=== PATIENT | male | born 1975 | race Caucasian/White ===

== ENCOUNTER → 2017-11-20 11:01 | Outpatient (CLI) | payer BC, SELFPAY | PROVIDERS: Visit Provider Otolaryngology | DX: Z01.818 Encounter for other preprocedural examination (principal); H60.11 Cellulitis of right external ear; L72.0 Epidermal cyst | CPT/HCPCS: 93005 ==

== ENCOUNTER 2020-12-02 12:47 | Emergency (ER) | payer SELFPAY ==
[2020-12-02 12:56] VITALS: BMI 24.4
[2020-12-02 13:00] VITALS: BP 131/87; PULSE 93; RESP 19; TEMP 36.8; O2SAT 100; BMI 31.7
--- NOTE | 2020-12-02 13:27 | HMH.EDUTC ---
[facility] [place] Disposition Clinical Impression: Bee sting reaction Qualifiers: Encounter type: initial encounter Injury intent: undetermined intent Qualified Code(s): T63.444A - Toxic effect of venom of bees, undetermined, initial encounter Disposition: Home, Self-Care Condition on Discharge: Good Instructions: How to Care for an Insect Bite or Sting, Insect Bites and Stings (Alternative Therapy), DI for Insect Bites and Stings Additional Instructions: Continue with over the counter Benadryl for reaction/itching if needed as directed on package Return if needed Over the counter Hydrocortisone cream may help Return if needed Straight to ER if any life threatening symptoms Referrals: Provider,Referral, MD [Primary Care Provider] - As needed Time of Disposition: 14:02 Medical Decision Making - Bruce Inquiry Pt receiving controlled substance: No Bruce was queried for this patient: No Vital Signs: 12/02/20 13:00 12/02/20 13:54 Temperature 98.3 F 98.3 F Temperature Source Oral Pulse Rate 93 H Pulse Rate [Right Brachial] 93 H Respiratory Rate 19 19 Blood Pressure 131/87 Blood Pressure [Right Arm] 131/87 Blood Pressure Mean [Right Arm] 101 Blood Pressure Source [Right Arm] Automatic Cuff Blood Pressure Position [Right Arm] Sitting 02 Sat by Pulse Oximetry 100 Oxygen Delivery Method Room Air Orders (Tests/Meds): ED MEDICATIONS Discontinued Medications Generic Name Dose Route Start Last Admin Trade Name Joseq PRN Reason Stop Dose Admin Diphenhydramine HCl 25 mg 12/02/20 13:31 12/02/20 13:42 Diphenhydramine 25mg Capsule PO 12/02/20 13:32 25 mg ONCE ONE Administration Famotidine 20 mg 12/02/20 13:31 12/02/20 13:42 Famotidine 20mg Tablet PO 12/02/20 13:32 20 mg ONCE ONE Administration Methylprednisolone Sodium Succinate 125 mg 12/02/20 13:31 12/02/20 13:44 Methylprednisolone Sod Succ 125mg Vial IM 12/02/20 13:32 125 mg ONCE ONE Administration [facility] [place] HPI - General Stated complaint: Allergic reaction-bee stings X4 Time Seen by Provider: 12/02/20 13:28 Mode of Arrival: Ambulatory Source of Information: Patient Limitations: No Limitations Description of Symptoms (Recalled from Triage Doc. 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 DENIES ANY THROAT SWELLING AND SOA HEENT Symptoms (Recalled from RN notes): No Resp Symptoms (Recalled from RN notes): No Skin Symptoms (Recalled from RN notes): Yes MS Symptoms (Recalled from RN notes): No Functional Status (Recalled from RN notes): WNL - History of Present Illness Provider Complaint: Patient states that he has reactions to bee stings and he was stung earlier while mowing grass about 4 times so he came on in to get treated before he got too bad State that he is starting to have swelling in his legs where he was stung and under his jaw Denies SOA at this time denies trouble swallowing - Related Data Previous Rx's Medication Instructions Recorded cephALEXin [Keflex 500mg Cap] 500 mg PO QID #28 cap 04/24/19 Allergies Allergy/AdvReac Type Severity Reaction Status Date / Time No Known Allergies Allergy Verified 12/18/17 14:24 - Worker's Comp Is this a Worker's Comp case?: No [facility] History - Hepatitis A Screen Drug use history?: No High risk sexual behaviors?: No History of sexually transmitted infection?: No Currently employed?: No Childcare worker?: No Do you have indoor plumbing?: Yes Do you have electricity?: Yes Attestation statement:: This patient has been screened for Hepatitis A risk factors. I have reviewed the patient's past medical history: Yes Medical History: Denies:: Cancer, Diabetes Mellitus Type 1, Diabetes Mellitus Type 2, Hypertension, MRSA, Seizures Other Medical History: Denies: Blood Transfusion Reaction, Other Laterality Cases: Bilateral: Other Other Surgeries: Yes: Other Amputation: No Fractures: No Comment: nasal bone surgery, righ
[2020-12-02 13:54] VITALS: BP 131/87; PULSE 93; RESP 19; TEMP 36.8; O2SAT 100
== END 2020-12-02 14:10 | disposition home or self-care (01) ==
PROVIDERS: Emergency Provider Nurse Practitioner
DX: T63.444A Toxic effect of venom of bees, undetermined, initial encounter (principal)
CPT/HCPCS: 96372; 99202; G0463

== ENCOUNTER → 2021-05-16 15:16 | Outpatient (CLI) | payer OTHER, SELFPAY | PROVIDERS: Visit Provider Nurse Practitioner | DX: U07.1 COVID-19 (principal) | CPT/HCPCS: C9803; U0003; U0005 ==

== ENCOUNTER 2021-07-25 21:22 | Emergency (ER) | payer OTHER, SELFPAY ==
[2021-07-25 21:22] VITALS: BP 141/86; PULSE 86; RESP 18; TEMP 36.6; O2SAT 97; BMI 24.3
[2021-07-25 21:56] LABS: Coronavirus 19, PCR Not Detected (NotDetected); Influenza A, PCR Not Detected (NotDetected); Influenza B, PCR Not Detected (NotDetected)
[2021-07-25 22:30] VITALS: BP 129/90; PULSE 84; O2SAT 98
[2021-07-25 23:13] LABS: Microscopic, Urine URINE MICROSCOPIC (MICROSCOPIC)
[2021-07-25 23:16] LABS: Appearance,Urine CLEAR (Clear); Bilirubin,Urine Negative (Negative); Blood, Urine Negative (Negative); Color,Urine YELLOW (Yellow); Glucose,Urine (UA) Negative (Negative); Ketones,Urine Negative (Negative); Leukocyte Esterase,Urine Negative (Negative); Nitrate,Urine Negative (Negative); Protein,Urine Negative (Negative); Urobilinogen,Urine 0.2 EU/dl (0.2)
--- NOTE | 2021-07-25 23:32 | HMH.EDURI ---
ED Disposition Clinical Impression: Acute viral syndrome Disposition: Home, Self-Care Condition on Discharge: Good Instructions: DI for Nausea -- Adult Additional Instructions: fluids and see pcp for follow up Referrals: Provider,Referral, MD [Primary Care Provider] - - Critical Care Critical Care Time: No Attestation: On 07/25/21, the high probability of a clinically significant, sudden or life threatening deterioration of the following system(s) required my full and direct attention, intervention and personal management. The time I documented below is in addition to time spent performing reported procedures but includes the following listed in this critical care notation. Medical Decision Making - Medical Records Medical records reviewed: Yes: I reviewed the patient's medical records. - Bruce Inquiry Pt receiving controlled substance: No Vital Signs: 07/25/21 21:22 Temperature 97.8 F Temperature Source Oral Pulse Rate [Left Radial] 86 Respiratory Rate 18 Blood Pressure [Right Arm] 141/86 H Blood Pressure Mean [Right Arm] 104 02 Sat by Pulse Oximetry 97 Oxygen Delivery Method Room Air - Lab Data Lab results reviewed: Yes: I reviewed the patient's lab results. Lab Results 07/25/21 21:48: SARS-CoV-2 (PCR) Not detected, Influenza A Untype (PCR) Not detected, Influenza Type B (PCR) Not detected Orders (Tests/Meds): ORDERS Category Date Time Status UA [Urinalysis and Microscopic] Stat Lab 07/25/21 22:35 Received Medical Decision Narrative: has prob viral illness with stable exam and neg covid /flu URI/Sore Throat HPI - General Chief Complaint: Nausea/Vomiting/Diarrhea Stated Complaint: CHILLS,VOMITING Time Seen by Provider: 07/25/21 23:32 Mode of Arrival: Ambulatory Source of Information: Patient, Medical Record Limitations: No Limitations Description of Symptoms (Recalled from ER Triage Doc. by RN): NAUSEA/VOMITING X 3 EPISODES. PT REPORTS HE HAS BEEN ABLE TO DRINK THIS AFTERNOON WITHOUT DIFFICULTY. PT REQUESTS WORK EXCUSE AFTER TREATED AND DISCHARGE. - History of Present Illness HPI Narrative: pt with nausea and vomiting and chills this am - occ cough - MD Complaint: fever, cough Onset (ago): hour(s) Duration: intermittent Severity: moderate Able to tolerate fluids by mouth: Yes Associated symptoms: myalgias Treatments prior to arrival: none - Related Data Previous Rx's Medication Instructions Recorded cephALEXin [Keflex 500mg Cap] 500 mg PO QID #28 cap 04/24/19 Allergies Allergy/AdvReac Type Severity Reaction Status Date / Time No Known Allergies Allergy Verified 12/18/17 14:24 [facility] History - Hepatitis A Screen Drug use history?: No High risk sexual behaviors?: No History of sexually transmitted infection?: No Currently employed?: No Childcare worker?: No Do you have indoor plumbing?: Yes Do you have electricity?: Yes Attestation statement:: This patient has been screened for Hepatitis A risk factors. I have reviewed the patient's past medical history: Yes Medical History: Denies:: Cancer, Diabetes Mellitus Type 1, Diabetes Mellitus Type 2, Hypertension, MRSA, Seizures Other Medical History: Denies: Blood Transfusion Reaction, Other Laterality Cases: Bilateral: Other Other Surgeries: Yes: Other Amputation: No Fractures: No Comment: nasal bone surgery, right finger, vasectomy, teeth extraction, left elbow - Social History Smoking Status: Current every day smoker Tobacco Type: cigarettes # Packs/Day (cigarettes): 1 Alcohol Intake: never Substance Use Type: denies use Occupational Status: employed Housing: house Household Members: family Family Hx:: Non-contributory ROS Obtained: Yes All systems reviewed & no additional complaints - Constitutional Constitutional: Reports fever(s), Reports malaise - Eyes Eyes: Denies change in vision - ENT Ears, Nose, Mouth, and Throat: Reports as per HPI, Denies sore throat - Card
[2021-07-25 23:45] VITALS: BP 125/78; PULSE 75; RESP 17; TEMP 37; O2SAT 97
[2021-07-26 00:11] LABS: Bacteria,Urine Trace /lpf; WBC,Urine Occasional #/hpf (0-3)
== END 2021-07-25 23:46 | disposition home or self-care (01) ==
PROVIDERS: Emergency Provider Emergency Medicine
DX: B34.9 Viral infection, unspecified (principal); R11.2 Nausea with vomiting, unspecified; R50.9 Fever, unspecified; F17.210 Nicotine dependence, cigarettes, uncomplicated
CPT/HCPCS: 81001; 99212; C9803; G0463; U0003; U0005

== ENCOUNTER → 2022-10-23 07:33 | Outpatient (CLI) | payer BC, SELFPAY ==
--- NOTE | 2022-10-23 07:39 | CA_ITS ---
FINAL REPORT TECHNIQUE: Multiple transverse and longitudinal images were performed of the right femoral-popliteal deep venous system with augmentation and compression maneuvers. CLINICAL HISTORY: .Pain and edema in right mid thigh with raised cord @AOI COMPARISON: none FINDINGS: Right lower extremity duplex ultrasound demonstrates superficial venous thrombus in the mid to distal greater saphenous vein. No evidence of DVT. IMPRESSION: Positive for superficial venous thrombus right lower extremity. Negative for DVT. Reviewed, Interpreted and Dictated by Irvin Tanner III, MD Transcribed by Glenis Saucedo Authenticated and [facility]
== END ==
LOC: RT 07:34
PROVIDERS: Visit Provider Physician Assistant
DX: I80.201 Phlebitis and thrombophlebitis of unspecified deep vessels of right lower extremity (principal)
CPT/HCPCS: 93971

== ENCOUNTER 2024-07-28 12:54 | Outpatient (CLI) | payer BC, SELFPAY ==
--- OUTSIDE RECORDS SUMMARY | 2024-07-28 12:57 | XMS_ITS | Data Portability ---
Author Organization [facility] - [facility]ani [facility], [facility] Address [address] [place] [address] Care Team Providers Care Band Manager Name Role Phone EDGARDO PABON Inspector Glass Or Mirror Assessment Encounter Date Assessment Date Assessment LastModified by Organization Details LastModified Time 07/19/2024 07/19/2024 - 49-year-old male with history of right wrist injury presenting with paresthesia and localized numbness in the upper limb. - Negative x-ray and EMG. Ring and small finger involvement suggest possible ulnar nerve or more proximal. - Recommend strengthening therapy. - Imaging: X-ray of right wrist showed no fractures. scott Not available 07/19/2024 14:28:59 Plan of Treatment Reminders Order Date Submit Date Provider Last Modified By Organization Details Last Modified Time Details Appointments RECHECK 2024 09:30A Faisal JEAN MD Not available Not available Not available Lab None recorded . Referral None recorded . Procedures None recorded . Surgeries None recorded . Imaging None recorded . Medication Orders None recorded . Patient TargetsNo targets recorded. Patient Instructions Encounter Date Encounter Id Patient Instructions Last Modified By Organization Details Last Modified Time 07/19/2024 [id number] - Continue attending physical therapy sessions. - Modify splint usage according to swelling. - Apply heat and perform prescribed exercises at home. - Follow-up in 6 weeks to assess improvement. - Report any worsening symptoms or new concerns to me immediately. [email or web address] Not available 07/19/2024 14:27:32 Reason for Referral None Reported. Results Created Date Observation Date Name Description Value Unit Range Abnormal Flag Note LastModifiedBy Organization Detail LastModifiedTime 07/15/1907/02/2024 nerve condu ction study No observ ation record ed. [email or web address] Not Available 2024 14:40:36 Result Notes None recorded. Problems No Known Problems Procedures Surgical History None recorded. Imaging Results Imaging Date Name Status LastModified by Organiz atnelson Details LastModified Time 07/02/2024 nerve conduction study completed [email or web address] Information not available 07/14/2024 14:40:36 Procedure Notes None recorded. Medical Equipment None Reported. Allergies No known drug allergies Medications Not known to be on any medication Vitals Date Recorded Body height Body mass index (BMI) Body weight Provider Name and Address Organization Details Last Updated DateTime 07/19/2024 190.5 cm 28.7 kg/m2 839706.25 g Yady Mejia [facility] 07/19/2024 14:12:46 Social History None recorded. Functional Status None recorded. Mental Status None recorded. Family History Nothing Reported. Medical History No medical history recorded. Immunizations Vaccine Type Date Status Note Provider Nam e and Address Organization Details Recorded Time Hep B, adult 01/03/2004 completed Yady reed [facility] 07/19/2024 14:07:06 Past Encounters Encounter ID Performer Location Encounter Start Date Encounter Closed Date Diagnosis/Indication Diagnosis SNOMED-CT Code Diagnosis ICD10 Code Diagnosis Note [id number] MOI JEAN MD [facility] [address] [place] [address] 07/19/2024 14:02:18 07/19/2024 14:31:42 Paresthesia of upper limb 75529128 R20.2 - Continue physical therapy focused on strengthen ing. Discontinu e splint Possibly from ulnar nerve subluxatio n, significan t improved from the first injury Pain of right wrist 3169 [id number] 17581 M25.531 - Apply heat and continue exercises in therapy. - Limit splint use to reduce swelling. Volar aspect, x-rays negative, EMG shows no sign of carpal tunnel syndrome. Advised therapy shift to range of motion strengthen ing/work hardening, work conditioni ng process, follow-up 4 to 6 weeks and see if he is able to return to full use Health Concerns Section Related Observation LastModified by Organization Detai ls LastModified Time None Recorded Concern Status LastModified by Organization Details LastModified Time None Recorded Advance Directives Directive None Recorded Payers Encounter Date Sequence Insurance Name Policy Number Policy Morse Covered Member ID Morse Member ID Guarantor Name 07/19/2024 MIKAYLAM Tmmk Ayde Jhaveri Notes Date Note Type Note Provider Name and Address Organization Details Recorded Time 07/19/2024 text/html [facility] d [facility]: Dr. Loretta Uribe Hand dominance: {{Right* Left ambidex trous}}Location: {{Right* Left Bilater al}} {{Hand Wrist Elbow Ot her Hand/wrist#}} Pain level: {{0 1 2 3 4 5* 6 7 8 9 10}} /10 Date of injury: 04/30/2024Duration: 11.5 weeks Recent Surgery: {{Yes No*}}Procedure: Date of surgery:Duration: In office procedure? {{Yes No*}} Previous upper extremity surgery? {{Yes* No}}Procedure: rt if flapApproximate date of surgery: ~20 years agoSurgeon (if known): unsure, at Have you or any of your immediate family members been seen by our hand surgeons before? 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 {{Yes* No}}Patient arrived in: {{post op splint OT splint DME brace* N/A}} taken off {{prior to xray during intake removed by patient* N/A}} Outside Contractor Sales Strength: right: left: Mr. Jhaveri is here for rt hand n/t. He had an injury to his rt wrist 04/30/2024, says he was carrying a flywheel and his wrist gave out. He says the n/t began after this. He says it is keeping him awake at night. Had emg with DR. Guzman.- The patient is a 49-year-old male presenting with paresthesia and pain in the right upper limb. - Symptoms began in April after lifting a flywheel, leading to wrist pain and hand numbness. - Numbness localized to the ring and small fingers; frequency is one to two times per week. - No specific activity required to trigger symptoms; aggravated by positioning. - Management has included physical therapy and wrist brace; swelling noted - X-ray showed no fracture; symptoms now limited to ring and small fingers. MOI JEAN MD [address] [place] [address], [phone], [facility] 07/19/2024 14:29:15
--- OUTSIDE RECORDS SUMMARY | 2024-07-28 12:57 | XMS_ITS | Data Portability ---
Author Organization [facility] & MICHELLE Lockhart ADMIN Address [address] [place] [phone] Care Team Providers Care Store Detective Name Role Phone MIORA ABRAMS Web Production Artist Assessment No assessment recorded. Plan of Treatment Reminders Order Date Submit Date Provider Last Modified By Organization Details Last Modified Time Details Appointments None recorded. Lab None recorded. Referral None recorded. Procedures None recorded. Surgeries None recorded. Imaging US, groin - Patient needs ultrasound for RIGHT groin mass 2022 023 [email or web address] [facility] (Centralized Scheduling), [address] [place], [address], 14:07:09 Medication Orders None recorded. Patient TargetsNo targets recorded. Patient InstructionsNo instructions recorded. Reason for Referral None Reported. Procedures Surgical History Date Name Laterality Status Provider Name and Address Organization Details Recorded Time procedure on nose completed [facility] & [place] 07/25/2022 14:16:35 Oral surgery procedure completed [facility] [place] 07/25/2022 14:16:49 vasectomy completed [facility] & [place] 07/25/2022 14:16:55 partial phalangectomy completed [facility] & [place] 07/25/2022 14:17:27 Imaging Results None recorded. Procedure Notes None recorded. Medical Equipment None Reported. Allergies No known drug allergies Medications Not known to be on any medication Vitals Date Recorded Body weight Body mass index (BMI) Body height Body temperature Oxygen saturation Oxygen saturation in Arterial blood by Pulse oximetry Heart rate Systolic blood pressure Diastolic blood pressure Provider Name and Address Organization Details Last Updated DateTime 3 512299. 54 g 30.5 kg/m2 190.5 cm 98.6 [degF] 96 % 96 % 88 /min 128 mm[Hg] 88 mm[Hg] Emily MARIANO [facility] & [place] 14:15:14 Social History Question Answer Notes LastModified by Organizat ion Details LastModified Time Tobacco Smoking Status Current Every Day Smoker Emily farley, [facility] & [place] 07/25/2022 14:16:23 What Is Your Level Of Alcohol Consumption? Occasional Information not available 07/25/2022 How Much Tobacco Do You Smoke? 1 PPD Information not available 07/25/2022 Do You Use Any Illicit Or Recreational Drugs? No Information not available 07/25/2022 Sex: Unknown Functional Status None recorded. Mental Status None recorded. Family History Relationship Description Onset Age of this Age Resolved Age Notes LastModified by Organization Details LastModified Time Mother Hypertensive disorder Not available 14:16:06 Medical History No medical history recorded. Past Encounters Encounter ID Performer Location Encounter Start Date Encounter Closed Date Diagnosis/Indication Diagnosis SNOMED-CT Code Diagnosis ICD10 Code Diagnosis Note [id number] Regi Casper MD [facility] General Surgery [address] [place] [address],[address] [place] [address] 07/25/2022 13:59:42 07/25/2022 14:42:19 Groin mass [id number] R19.00 The location is most consistent with lymph node. Risk of femoral hernia in a male patient is very low. I have ordered an ultrasound to better evaluate the area. Health Concerns Section Related Observation LastModified by Organization Detai ls LastModified Time None Recorded Concern Status LastModified by Organization Details LastModified Time None Recorded Advance Directives Directive None Recorded Payers None recorded. Notes Date Note Type Note Provider Name and Address Organization Details Recorded Time 07/25/2022 text/html 47-year-old man referred for a possible right inguinal hernia. Patient was working at [employer], experienced pain in his right thigh, inferior to the inguinal ligament. This area was initially swollen and painful, has since resolved. Regi Casper MD [address] [place] [address] [place], [place], [address], [place] - [facility] - [place] & [place] 07/29/2022 11:25:20
--- OUTSIDE RECORDS SUMMARY | 2024-07-28 12:57 | XMS_ITS | Continuity of Care Document ---
Author Organization [facility] Address [address] [place] [address] Care Team Providers Care Wool Batting Worker Name Role Phone EDGARDO PABON Chinese Herbalist Assessment Encounter Date Assessment Date Assessment LastModified [...] By Organization Details Last Modified Time 07/19/2024 [id number] - Continue attending physical therapy sessions. - [...] Notes None recorded. Problems No Known Problems Medical Equipment None Reported. Allergies No known drug allergies Medications Not known to be on any medication Vitals Date Recorded Body height Body mass index (BMI) Body weight Provider Name and Address Organization Details Last Updated DateTime 07/19/2024 190.5 cm 28.7 kg/m2 955300.25 g Yady Mejia [facility] 07/19/2024 14:12:46 Social History None recorded. Functional Status None recorded. Mental Status None recorded. Family History Nothing Reported. Medical History No medical history recorded. Immunizations Vaccine Type Date Status Note Provider Nam e and Address Organization Details Recorded Time Hep B, adult 01/03/2004 completed Yady reed [facility] 07/19/2024 14:07:06 Past Encounters Encounter ID Performer Location Encounter Start Date Encounter Closed Date Diagnosis/Indication Diagnosis SNOMED-CT Code Diagnosis ICD10 Code Diagnosis Note [id number] MOI JEAN MD [facility] [address] [place] [address] 07/19/2024 14:02:18 07/19/2024 14:31:42 Paresthesia of upper limb 91979846 R20.2 - Continue physical therapy focused on strengthen ing. Discontinu e splint Possibly from ulnar nerve subluxatio n, significan t improved from the first injury Pain of right wrist 3169 052308 62718 M25.531 - Apply heat and continue exercises [...] by Organization Details LastModified Time None Recorded Payers Encounter Date Sequence Insurance Name Policy Number Policy Morse Covered Member ID Morse Member ID Guarantor Name 07/19/2024 MSMM Tmmk Ayde Jhaveri Notes Date Note Type Note Provider Name and Address Organization Details Recorded Time 07/19/2024 text/html Consult [facility]e d by[facility]: Dr. Loretta Uribe Hand dominance: {{Right* [...] xray during intake removed by patient* N/A}} Ore Miner Strength: right: left: Mr. Jhaveri is here [...] ring and small fingers. MOI JEAN MD [address] [place] [address], [phone], [facility] 07/19/2024 14:29:15
--- OUTSIDE RECORDS SUMMARY | 2024-07-28 12:57 | XMS_ITS | Data Portability ---
Author Organization GARC[facility] - Salomon sarmiento MD, Main Office Address [facility], [facility] [address] [place] [address] Care Team Providers Care Rock Dust Sprayer Name Role Phone EDGARDO PABON Cryptologic Technician Operator/Analyst [phone] Assessment No assessment recorded. Plan of Treatment Reminders Order Date Submit Date Provider Last Modified By Organization Details Last Modified Time Details Appointments None record ed. Lab None record ed. Referral None record ed. Procedures None record ed. Surgeries None record ed. Imaging None record ed. Medication Orders None record ed. Patient TargetsNo targets recorded. Patient Instructions Encounter Date Encounter Id Patient Instructions Last Modified By Organization Details Last Modified Time 07/02/2024 [id number] Numbness and Tingling: Care Instructions Not available 07/02/2024 14:40:02 Reason for Referral None Reported. Results Created Date Observation Date Name Description Value Unit Range Abnormal Flag Note LastModifiedBy Organization Detail LastModifiedTime 07/03/1907/02/2024 elect romyo gram + nerve condu ction study No observ ation record ed. [facility] Not Available 2024 14:45:59 Result Notes None recorded. Problems No Known Problems Procedures Surgical History Date Name Laterality Status Provider Name and Address Organization Details Recorded Time 07/02/2024 NCV/EMG completed Jose Guzman MD 07/02/2024 14:39:38 Imaging Results Imaging Date Name Status LastModified by Organization Details LastModified Time 07/02/2024 electromyogram + nerve conduction study completed [facility] Information not available 07/02/2024 14:45:59 Procedure Notes None recorded. Medical Equipment None Reported. Allergies No known drug allergies Medications Not known to be on any medication Vitals None Recorded Social History None recorded. Functional Status None recorded. Mental Status None recorded. Family History Nothing Reported. Medical History No medical history recorded. Past Encounters Encounter ID Performer Location Encounter Start Date Encounter Closed Date Diagnosis/Indication Diagnosis SNOMED-CT Code Diagnosis ICD10 Code Diagnosis Note [id number] Jose Fitzgerald Main Office [address], [facility] [address] [place] [address] 07/02/2024 14:17:31 07/02/2024 14:41:34 Paresthesia 76573596 R20.2 Health Concerns Section Related Observation LastModified by Organization Detai ls LastModified Time None Recorded Concern Status LastModified by Organization Details LastModified Time None Recorded Advance Directives Directive None Recorded Payers Encounter Date Sequence Insurance Name Policy Number Policy Morse Covered Member ID Morse Member ID Guarantor Name 07/02/2024 VIKAS Jhaveri
--- OUTSIDE RECORDS SUMMARY | 2024-07-28 12:57 | XMS_ITS | Continuity of Care Document ---
Author Organization GARC[facility]A - Salomon sarmiento MD, Main Office Address [address] [place] [address], [facility] [address] [place] [address] Care Team Providers Care Process Analyst Name Role Phone EDGARDO PABON Tab Cutting Machine Operator [phone] Assessment No assessment recorded. Plan of Treatment [...] By Organization Details Last Modified Time 07/02/2024 [id number] Numbness and Tingling: Care Instructions [email or web address] Not available 07/02/2024 14:40:02 Reason for Referral [...] Jose Guzman MD 07/02/2024 14:39:38 Imaging Results None recorded. Procedure Notes None [...] SNOMED-CT Code Diagnosis ICD10 Code Diagnosis Note [id number] Jose Fitzgerald Main Office [address], [facility] [address] [place] [address] 07/02/2024 14:17:31 07/02/2024 14:41:34 [facility] [id number] R20.2 Health Concerns Section Related Observation LastModified by Organization Detai ls LastModified Time None Recorded Concern Status LastModified by Organization Details LastModified Time None Recorded Payers Encounter Date Sequence Insurance Name Policy Number Policy Morse Covered Member ID Morse Member ID Guarantor Name 07/02/2024 VIKAS Jhaveri
--- NOTE | 2024-07-28 12:59 | CA_ITS ---
FINAL REPORT TECHNIQUE: Left lower extremity venous duplex was performed with augmentation and compression. CLINICAL HISTORY: EDEMA LLE,RECURRENT INFECTIONS,NKI COMPARISON: None FINDINGS: Proper flow is seen throughout the deep venous system. There is no evidence of deep venous thrombosis in the left lower extremity. IMPRESSION: No deep venous thrombosis identified in the left lower extremity. Reviewed, Interpreted and Dictated by Taiwo Tsai MD Transcribed by Adrienne Still Authenticated and [facility]
== END 2024-07-28 23:59 | disposition home or self-care (01) ==
LOC: RT 12:54
PROVIDERS: PCP Nurse Practitioner Family; Visit Provider Nurse Practitioner Family
DX: R60.0 Localized edema (principal)
CPT/HCPCS: 93971

== ENCOUNTER 2024-12-14 11:35 | Emergency (ER) | payer SELFPAY ==
[2024-12-14 11:58] VITALS: BP 141/80; PULSE 90; RESP 17; TEMP 36.7; O2SAT 97; BMI 26.9
--- NOTE | 2024-12-14 12:03 | XR_ITS ---
FINAL REPORT CLINICAL HISTORY: possible FB to bottom of foot/heel. Pain, tender FINDINGS: RIGHT FOOT Three views were obtained. There is no fracture or dislocation. The joint spaces appear normal. No soft tissue abnormality is identified. An os peroneum is identified. IMPRESSION: No acute process. Reviewed, Interpreted and Dictated by Taiwo Tsai MD Transcribed by Hazel Platt Authenticated and [facility]
--- NOTE | 2024-12-14 12:03 | XR_ITS ---
FINAL REPORT CLINICAL HISTORY: hyperextended knee, pain with movement, swollen FINDINGS: RIGHT KNEE Three views were obtained. There is no fracture or dislocation. The joint spaces appear normal. No soft tissue abnormality is identified. IMPRESSION: No acute process. Reviewed, Interpreted and Dictated by Taiwo Tsai MD Transcribed by Hazel Platt Authenticated and [facility]
[2024-12-14 12:10] VITALS: BP 134/79; PULSE 72; RESP 13; TEMP 36.6; O2SAT 98
--- NOTE | 2024-12-14 12:12 | ED_ITS ---
<Statement entered by Lew Day MD - 12/14/24 15:16> I was consulted by the KAILA, and we discussed the complexity of the problems being addressed. I approved the treatment and management plan for this patient's care in the emergency department, thus performing a substantive portion of the medical decision making. Lew Day MD, TEVIN, FACEP Discharge Plan Disposition Patient Disposition: Home, Self-Care Condition: Good Prescriptions Prescriptions: No Action cephalexin 500 MG capsule 500 mg PO QID Qty: 28 0RF Referrals Follow up/Referrals: Loretta Kimball APRN [Primary Care Provider, Medical] - See instructions Anali Yip DPM [Staff Physician, Podiatry] - See instructions Activity Restrictions/Add. Instructions Additional Instructions/Restrictions: Please return to the emergency department with any worsening signs or symptoms. Please follow-up with pin ticket machine operator in the upcoming days, I would recommend following up with your PCP to check your blood sugar, monitor for any worsening signs or symptoms to include redness swelling any drainage from the wound, please utilize edwr-gzk-dobobpe wart creams for symptomatic relief. Clinical Impressions Clinical Impression: Pain in right foot Instructions Patient Instructions: DI for Foot Pain, DI for Plantar Warts Print Language Print Language: Comoran Discharge ED Provider: Lew Day General Adult HPI General Chief complaint: PAIN Stated complaint: Something in R Foot Time Seen by Provider: 12/14/24 12:04 Mode of Arrival: Family Vehicle Source of Information: Patient and Medical Record Description of Symptoms (Recalled from ER Triage Doc. by RN): Pt presents to ER with concerns of somthing in my foot . States approx 1 wk ago he stepped on something . He couldn't see the sole of his right foot where the injury occurred. There is a white/pale discoloration to the sole, possible foreign body/small puncture. He is also c.o pain to R knee and swelling after hyperextending it. He has been icing it with little relief. History of Present Illness HPI narrative: 49-year-old male presents the emergency department with plantar aspect of right foot pain, patient endorses stepping on something barefoot , approximately 1 week ago, he has had difficulty ambulating on it, is around the patient's heel, is tender to the touch, no redness or swelling no fever no chills, patient also endorses a knee injury that occurred 3 days ago where he hyperextended it, he endorses pain swelling difficult to ambulate on the right knee as well, that he would like checked out . Patient denies any chest pain shortness of breath, no abdominal pain no nausea no vomiting no constipation no diarrhea no numbness or tingling, no radicular symptomatology, is current everyday smoker, denies any alcohol or drug use, denies any other relevant past medical history takes no other medications at home. Initial triage vitals unremarkable. Please note that above description of symptoms, in this electronic medical record under categorization of recalled from ER triage doctor by RN are reflective of an initial nursing assessment, however, is not reflective of my full history and physical exam that was personally taken and clarified. Consequentially, this preceding description of symptoms, which may include the patient's categorized chief complaint in the EMR, do not reflect my personal clinical impression, and the ultimate description of history of present illness and patient stated complaints should be deferred to this section of the note. Unless stated otherwise or congruent with this section of the note, additional signs, symptoms, or incongruence should be interpreted as inaccurate with my clinical impression. Onset (ago): week(s) Related Data Previous Rx's ?Medication ?Instructions ?Recorded cephalexin 500 mg capsule 500 mg PO QID #28 caps 04/24 Allergies Allergy/AdvReac Type Severity Reaction Status Date / Time No Known Allergies Allergy Verified 12/18/17 14:24 [facility] Disclaimer: The information contained in this section may have been updated after the patient was seen, as this information can be updated by other users. 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 current occupational exposures/hazards: No Have you lived/traveled outside [place] in past 30 days?: No Contact w/someone who lives/traveled outside US past 30 days?: No Exposure to someone with infectious disease in past 14 days?: No Do you have a fever (greater than 100.4 F or 38 C)?: No Have you tested positive for COVID-19?: No Exposed to someone with COVID-19 in past 14 days?: No Do you have a sore throat?: No Do you have a cough?: No Do you have any weakness?: No Do you have any diarrhea?: No Are you experiencing any unusual bleeding?: No Do you have any muscle aches/pain?: No Do you have any abdominal pain?: No Are you experiencing loss of taste or smell?: No Other Medical History Have you received the Flu Vaccine for this season: No Have you received the Pneumonia Vaccine: No ROS Obtained: Yes All systems reviewed & no additional complaints except as documented Physical Exam General General appearance: alert and in no apparent distress Head Head exam: atraumatic and normocephalic Eye Eye exam: Present PERRL and EOMI ENT ENT exam: Present mucous membranes moist Neck Neck exam: Present normal inspection Chest Chest inspection: Present normal inspection and symmetric chest wall rise Respiratory Respiratory exam: Present normal lung sounds bilaterally; Absent respiratory distress Cardiovascular Cardiovascular exam: Present regular rate and normal rhythm Abdominal Exam Abdominal exam: Present soft; Absent tenderness Extremities Exam Extremities exam: Present normal inspection, full ROM, tenderness and other (There is mild tenderness palpation over the patient's knee, no difficulty with flexion or extension patient is been ambulate on the affected extremity, otherwise neurovascular intact. There is also mild pain palpation to the patient's plantar aspect of the foot); Absent edema or joint swelling Neurological Exam Neurological exam: Present alert and oriented X3 Psychiatric Psychiatric exam: Present normal affect Skin Skin exam: Present warm, dry and other (Area of raised, nodular appearance, with a center, no erythema, pain palpation to the area,); Absent erythema Medical Decision Making Medical Records Medical records reviewed: Yes I reviewed the patient's medical records. Screening: Per USPSTF and CDC recommendations, given the prevalence of disease in our region, it is our hospital?s policy to screen for HIV and viral Hepatitis for all patients aged 18 and over and those with ongoing risk factors. Bruce Inquiry Pt receiving controlled substance: No Bruce was queried for this patient: No Vital Signs: 12/14/24 11:58 Temperature 98.0 F Temperature Source Oral Pulse Rate [Right] 90 Respiratory Rate 17 Blood Pressure [Right Arm] 141/80 H Blood Pressure Mean [Right Arm] 100 Blood Pressure Source [Right Arm] Automatic Cuff 02 Sat by Pulse Oximetry 97 Oxygen Delivery Method Room Air Orders (Tests/Meds): ED MEDICATIONS Discontinued Medications Generic Name Dose Route Start Last Admin Trade Name Freq PRN Reason Stop Dose Admin Tetanus/Reduced Diphtheria/Acell Pertussis 0.5 ml 12/14/24 12:39 12/14/24 12:48 Tet/Diphth/Pert-Adult 0.5ml Syringe IM 12/14/24 12:40 0.5 ml .ONCE ONE Administration ORDERS Category Date Time Status XR foot RT min 3V Stat Exams 12/14/24 12:03 Completed XR knee RT 4V Stat Exams 12/14/24 12:03 Completed Medical Decision Narrative: 49-year-old male presents emerged part with right foot plantar pain, after stepping on something 1 week ago as well as right knee pain, differential diagnose include but not limited to knee sprain/strain, knee fracture, knee ligamentous injury, plantar puncture wound, right foot foreign body, diabetic foot ulcer, cellulitis, plantar verruca among others I discussed this patient's case with attending physician Dr. Day Will obtain x-ray of the right foot and right knee for further evaluation/characterization, patient is unsure of his tetanus prophylaxis, thus will update here in the emergency department. I reviewed the patient's right foot x-ray along the corresponding radiologic report, no soft tissue abnormality identified, no acute process. I read the patient's right knee x-ray along the corresponding radiologic report, no acute process. I discussed the results with the patient at the bedside, patient may have a plantar verruca, patient has no erythema, no abscess formation, no discharge, or drainage from the wound, on the patient's foot, no fever no chills, no redness or hot to touch sensation around the area, could be unknown plantar puncture wound versus onset of verruca A. Or undiagnosed diabetic foot ulcers patient does not follow-up with his PCP much. Recommend follow-up with PCP and referral to podiatry remade. Recommend ibuprofen Tylenol [id number]-[id number] creams for verruca A. Patient voiced understanding and agreed with current treatment plan/discharge plan. Strict return precaution given. Critical Care Critical Care Time Critical Care Time: No
--- OUTSIDE RECORDS SUMMARY | 2024-12-14 12:18 | XMS_ITS | Clinical Summary ---
Author Organization [facility] Address [address] [place] [id number] Phone [email or web address] Care Team Providers Care Machine Sewer Name Role Phone Provider, No Primary Care Provider Unavailabl e Allergies Active Allergy Reactions Criticality Noted Date Comments Bee Venom Swelling 02/01/2021 Medications No known medications Active Problems Problem Noted Date Diagnosed Date Splinter in skin 03/19/2024 Social History Tobacco Use Types Packs/Day Years Used Date Smoking Tobacco: Every Day Cigarettes 1 30 Smokeless Tobacco: Never Tobacco Cessation:Ready to Q uit: Not Asked; Counseling Given: Not Answered Intimate Partner Violence Answer Date R ecorded Insults You Not on file 01/31/2021 Threatens You Not on file 01/31/2021 Screams at You Not on file 01/31/2021 Physically Hurt Not on file 01/31/2021 Intimate Partner Violence Score Not on file 01/31/2021 Depression Answer Date Recorded PHQ Total Score 0 06/04/2024 Stress Answer Date Recorded Stress in your Life Not on file 02/18/2024 Dealing with Stress 3 02/18/2024 Sex and Gender Information Value Date Recorded Sex Assigned at Not on file Legal Sex Male 8:57 PM CDT Gender Identity Not on file Sexual Orientation Not on file Last Filed Vital Signs Vital Sign Reading Time Taken Comments Blood Pressure 131/74 08/10/2024 7:55 PM EDT Pulse 86 08/10/2024 7:55 PM EDT Temperature 36.6 C (97.9 F) 08/10/2024 7:55 PM EDT Respiratory Rate 16 07/06/2024 5:27 PM EDT Oxygen Saturation 97% 08/10/2024 7:55 PM EDT Inhaled Oxygen Concentration - - Weight 107 kg (235 lb) 06/04/2024 9:37 PM EST Height 190.5 cm (6' 3 ) 06/04/2024 9:37 PM EST Body Mass Index 29.37 06/04/2024 9:37 PM EST Plan of Treatment Health Maintenance Due Date Last Done Comments CT Colonography 1976 Colonoscopy 1976 Colorectal Cancer Screening Combo 1976 DNA Cologuard 1976 Dental Cleaning/Exam 1976 FIT or FOBT Test 1976 Sigmoidoscopy 1976 Tetanus Diphtheria and Pertu ssis Immunization (1 - Tdap) 1995 Hepatitis B Immunization (2 of 3 - 19+ 3-dose series) 01/31/2004 01/03/2004 Covid-19 Immunization (1 - 2 -25 season) 2024 Influenza Immunization (#1) 2024 HIB Immunization Aged Out No longer e ligible based on patient's age to complete this topic HPV Immunization Aged Out No longer e ligible based on patient's age to complete this topic Hepatitis A Immunization Aged Out No longer eligible based on patient's age to complete this topic Pneumococcal: Ped (0 to 5 Yr s) and At-Risk Member (6 to 64 Yrs) Aged Out No longer e ligible based on patient's age to complete this topic Polio Immunization Aged Out No longer eligible based on patient's age to complete this topic Insurance OPT OUT NO COPAY NB Care Teams Machine Sewer Relationship Specialty Start Date End Date [place], [place] [id number] PCP - General Bus Person 07/09/22
[2024-12-14] MEDS: TET/DIPHTH/PERT-ADULT 0.5ML SYRINGE 0.5 ML IM (12:48)
[2024-12-14 14:03] VITALS: BP 140/89; PULSE 79; RESP 16; TEMP 36.7; O2SAT 99
== END 2024-12-14 14:04 | disposition home or self-care (01) ==
PROVIDERS: Emergency Provider Student in an Organized Health Care Education/Training Program; PCP Nurse Practitioner Family
DX: M79.671 Pain in right foot (principal); Z23 Encounter for immunization
CPT/HCPCS: 73564; 73630; 90471; 90715; 99283